=== PATIENT | female | born 1960 | race Two or more races ===

== ENCOUNTER 2025-05-27 08:41 | Inpatient (IN) | payer BC ==
[~2025-05-27] VITALS: Ht 170.2 cm; Wt 95.7 kg
[2025-05-27 08:49] VITALS: O2SAT 99
[2025-05-27] MEDS: SODIUM CHLORIDE 0.9% 1,000 ML IV ONE ×2 (09:15→11:00)
[2025-05-27] MEDS ORDERED: AMLODIPINE 10MG TABLET PO ONE (09:15)
[2025-05-27 09:29] LABS: BASOPHILS % 0.4 % (0.0-2.0); EOSINOPHILS % 1.7 % (0.0-5.0); HEMATOCRIT. 40.3 % (36.0-48.0); HEMOGLOBIN. 12.6 g/dL (12.0-16.0); LYMPHOCYTES % 36.1 % (20.0-50.0); MEAN PLATELET VOLUME 10.0 fl (7.4-10.4); MONOCYTES % 7.5 % (2.0-8.0); NEUTROPHILS % 54.3 % (40.0-76.0); PLATELET 196 x1000/uL (130-400); RED BLOOD CELL COUNT 5.10 mill/uL (4.2-5.4); RED CELL DISTRIBUTION WIDTH 15.0 % (11.6-14.6)
[2025-05-27] MEDS: LOSARTAN 50 MG TABLET PO ONE (09:35)
[2025-05-27 09:45] LABS: CREATININE 1.4 mg/dL (0.6-1.0)
[2025-05-27 09:46] LABS: UREA NITROGEN BLOOD 17 mg/dL (9-23)
[2025-05-27 09:47] LABS: ASPARTATE AMINOTRANSFERASE 12 IU/L (<34); BILIRUBIN DIRECT < 0.1 mg/dL (<=3.0)
[2025-05-27 09:48] LABS: BILIRUBIN TOTAL 0.4 mg/dL (0.1-1.0); PROTEIN TOTAL 7.8 g/dL (6.0-8.3)
[2025-05-27 09:50] LABS: BG BASE EXCESS -1.7 mmol/L (-2.0-3.0); BG CARBOXYHEMOGLOBIN 0.8 % (0.5-1.5); BG DEOXYHEMOGLOBIN 3.1 % (0.0-5.0); BG FRACTION INSPIRED OXYGEN 21; BG HCO3 ACT 21.8 mmol/L (21.0-28.0); BG METHEMOGLOBIN 0.3 % (0.5-1.5); BG OXYGEN SATURATION 96.9 % (94.0-98.0); BG OXYHEMOGLOBIN 95.8 % (94.0-98.0); BG PCO2 33.4 mmHg (32.0-45.0); BG PH 7.433 (7.350-7.450); BG PO2 90.6 mmHg (83.0-108.0); BG SAMPLE SITE RIGHT RADIAL; BG TOTAL HEMOGLOBIN 13.4 g/dL (12.0-16.0); BG VENT MODE ROOM AIR
[2025-05-27 09:59] LABS: TROPONIN I HIGH SENSITIVITY 35 ng/L (3.0-34)
[2025-05-27 10:12] LABS: CLARITY URINE CLEAR (CLEAR); COLOR URINE YELLOW (YELLOW); GLUCOSE URINE 3+ (NEGATIVE); KETONES URINE NEGATIVE (NEGATIVE); LEUKOCYTE ESTERASE URINE NEGATIVE (NEGATIVE); NITRITE URINE NEGATIVE (NEGATIVE); OCCULT BLOOD URINE NEGATIVE (NEGATIVE); PH URINE 7.0 (4.5-8.0); PROTEIN URINE 1+ (NEGATIVE); SPECIFIC GRAVITY URINE 1.006 (1.005-1.030); UROBILINOGEN URINE 0.2 E.U./dL (0.2-1.0)
[2025-05-27 10:53] LABS: SQUAMOUS EPITHELIAL CELL URINE RARE /lpf (RARE/1+)
[2025-05-27 10:54] LABS: BACTERIA URINE TRACE; RBC URINE NONE SEEN /hpf (0-2); WBC URINE 0-2 /hpf (0-2)
[2025-05-27] MEDS: INSULIN REGULAR (HUMULIN R) 1000UNITS/10ML VIAL SUBCUT SCH (11:22)
[2025-05-27] MEDS: AMLODIPINE 10MG TABLET PO SCH (11:23)
[2025-05-27] MEDS: ASPIRIN 325MG EC TABLET PO SCH (11:25)
[2025-05-27] MEDS: HYDRALAZINE 20MG/ML VIAL IV SCH (11:32)
[2025-05-27] MEDS ORDERED: IPRATROPIUM/ALBUTEROL 0.5-3(2.5)MG/3ML NEB HHN PRN (11:45)
[2025-05-27] MEDS ORDERED: HYDRALAZINE 20MG/ML VIAL IV PRN (11:45)
[2025-05-27] MEDS ORDERED: DOCUSATE SODIUM 100MG CAPSULE PO PRN (11:45)
[2025-05-27] MEDS ORDERED: DEXTROSE 50% WATER 50ML SYRINGE IV PRN (11:45)
[2025-05-27] MEDS ORDERED: GUAIFENESIN 200MG/10ML SUGAR FREE UDC PO PRN (11:45)
[2025-05-27] MEDS ORDERED: ONDANSETRON HCL 4MG/2ML INJ IV PRN (11:45)
[2025-05-27] MEDS ORDERED: LORAZEPAM 0.5MG TABLET PO PRN (11:45)
[2025-05-27] MEDS ORDERED: ACETAMINOPHEN 325MG TABLET PO PRN ×2 (11:45)
[2025-05-27 12:44] LABS: LDL CHOLESTEROL 123.0 mg/dL (5-100); TRIGLYCERIDE 123.0 mg/dL (0-150); TROPONIN I HIGH SENSITIVITY 33 ng/L (3.0-34)
[2025-05-27 12:48] LABS: T4 FREE 1.52 ng/dL (0.89-1.76)
[2025-05-27] MEDS: BLOOD SUGAR DIAGNOSTIC STRIP TEST SCH (13:00)
[2025-05-27] MEDS: INSULIN LISPRO 100 UNITS/ML SUBCUT SCH (13:20)
[2025-05-27 16:00] VITALS: BP 140/75; PULSE 72; RESP 16; TEMP 36.9; O2SAT 99
[2025-05-27 17:21] VITALS: BP 143/74; PULSE 62; RESP 16; TEMP 36.8628
[2025-05-27] MEDS: ENOXAPARIN 40MG/0.4ML SYR SUBCUT SCH (17:56)
[2025-05-27] MEDS ORDERED: SEMA2PEN (18:57)
[2025-05-27] MEDS ORDERED: AMLO5TAB88 PO (18:57)
[2025-05-27] MEDS ORDERED: FURO-151 PO (18:57)
[2025-05-27] MEDS ORDERED: METO-396 PO (18:57)
[2025-05-27 20:00] VITALS: BP 178/89; PULSE 76; RESP 18; TEMP 36.4
[2025-05-27] MEDS: HYDRALAZINE HCL 50MG TABLET PO SCH (21:12)
[2025-05-27] MEDS: CLONIDINE 0.1MG TABLET PO PRN (21:13)
[2025-05-27] MEDS: INSULIN GLARGINE 100 UNITS/ML SUBCUT SCH (21:26)
[2025-05-27] MEDS ORDERED: INSULIN GLARGINE 100 UNITS/ML SUBCUT SCH (22:00)
[2025-05-28] VITALS: BP 158/75; PULSE 78; RESP 18; TEMP 36.8
[2025-05-28 04:00] VITALS: BP 147/76; PULSE 76; RESP 18; TEMP 36.1
[2025-05-28 08:00] VITALS: BP 180/83; PULSE 63; RESP 20; TEMP 36.2; O2SAT 97
[2025-05-28] MEDS: ASPIRIN 81MG TABLET PO SCH (08:34)
[2025-05-28] MEDS: AMLODIPINE 10MG TABLET PO SCH (08:34)
[2025-05-28] MEDS: METOPROLOL SUCCINATE 50MG ER TABLET PO SCH (08:35)
[2025-05-28 12:00] VITALS: BP 164/84; PULSE 80; RESP 18; TEMP 36.2; O2SAT 98
[2025-05-28 12:22] LABS: BASOPHILS % 0.4 % (0.0-2.0); EOSINOPHILS % 2.4 % (0.0-5.0); HEMATOCRIT. 39.3 % (36.0-48.0); HEMOGLOBIN. 12.5 g/dL (12.0-16.0); LYMPHOCYTES % 38.6 % (20.0-50.0); MEAN PLATELET VOLUME 10.4 fl (7.4-10.4); MONOCYTES % 6.5 % (2.0-8.0); NEUTROPHILS % 52.1 % (40.0-76.0); PLATELET 198 x1000/uL (130-400); RED BLOOD CELL COUNT 4.98 mill/uL (4.2-5.4); RED CELL DISTRIBUTION WIDTH 14.5 % (11.6-14.6)
[2025-05-28 12:30] LABS: CREATININE 1.3 mg/dL (0.6-1.0); UREA NITROGEN BLOOD 14.0 mg/dL (9-23)
[2025-05-28] MEDS ORDERED: HYDRALAZINE HCL 50MG TABLET PO SCH (13:00)
[2025-05-28] MEDS: HYDRALAZINE HCL 50MG TABLET PO SCH (13:23)
[2025-05-28 16:00] VITALS: BP 159/89; PULSE 78; RESP 18; TEMP 36.3; O2SAT 98
[2025-05-28] MEDS: INSULIN LISPRO 100 UNITS/ML SUBCUT SCH ×2 (17:40→17:41)
[2025-05-28] MEDS ORDERED: CLON-493 PO (18:24)
[2025-05-28] MEDS ORDERED: ASPI-1497 PO (18:25)
[2025-05-28] MEDS ORDERED: METF-1150 MT (18:26)
[2025-05-28] MEDS ORDERED: HYDR50TA40 MT (18:27)
[2025-05-28] MEDS ORDERED: HYDR12.54 PO (18:28)
[2025-05-28] MEDS ORDERED: POTA-205 PO (18:28)
[2025-05-28] MEDS ORDERED: GLIP5TAB22 PO (18:29)
[2025-05-28 20:00] VITALS: BP 147/77; PULSE 57; RESP 19; TEMP 35.8; O2SAT 96
[2025-05-28] MEDS: ATORVASTATIN CALCIUM 40MG TABLET PO SCH (20:38)
[2025-05-28 21:28] LABS: CREATININE URINE RANDOM 76.7 mg/dL; UREA NITROGEN URINE RANDOM 336 mg/dL
[2025-05-28] MEDS: INSULIN GLARGINE 100 UNITS/ML SUBCUT SCH (21:57)
[2025-05-28 22:25] LABS: SODIUM URINE RANDOM < 10 mEq/L
[2025-05-28 22:38] LABS: OSMOLALITY URINE 235 mOsm/kg (500-850)
[2025-05-29] VITALS: BP 143/73; PULSE 62; RESP 19; TEMP 36.4; O2SAT 98
[2025-05-29 04:00] VITALS: BP 143/75; PULSE 54; RESP 19; TEMP 36.4
[2025-05-29 08:00] VITALS: BP 143/77; PULSE 53; RESP 17; TEMP 36.4; O2SAT 97
[2025-05-29 12:00] VITALS: BP 161/85; PULSE 55; RESP 16; TEMP 36.5; O2SAT 98
[2025-05-29] MEDS: INSULIN LISPRO 100 UNITS/ML SUBCUT SCH (13:05)
[2025-05-29] MEDS ORDERED: ASPI-1497 PO (13:17)
[2025-05-29] MEDS ORDERED: METO-396 PO (13:17)
[2025-05-29] MEDS ORDERED: METF-1150 MT (13:17)
[2025-05-29] MEDS ORDERED: AMLO10TA80 PO (13:17)
[2025-05-29] MEDS ORDERED: INSU100I28 SQ (13:17)
[2025-05-29] MEDS ORDERED: LIP40 PO (13:17)
[2025-05-29] MEDS ORDERED: HYDR50TA39 PO (13:17)
[2025-05-29] MEDS ORDERED: HYDR-2988 MT (15:03)
[2025-05-29 16:57] LABS: CREATININE 1.4 mg/dL (0.6-1.0); UREA NITROGEN BLOOD 16.0 mg/dL (9-23)
[2025-05-29] MEDS ORDERED: HYDR12.54 PO (17:24)
[2025-05-29 17:57] VITALS: BP 154/82; PULSE 55; RESP 17; TEMP 98
[2025-05-29] MEDS ORDERED: INSULIN GLARGINE 100 UNITS/ML SUBCUT SCH (22:00)
[2025-05-30] MEDS ORDERED: METOPROLOL SUCCINATE 25MG ER TABLET PO SCH (09:00)
[2025-05-31] MEDS ORDERED: INSU100I28 SQ (17:18)
[2025-05-31] MEDS ORDERED: ATOR40TA70 PO (17:18)
[2025-05-31] MEDS ORDERED: ASPI-1497 PO (17:18)
[2025-05-31] MEDS ORDERED: METO-396 PO (17:18)
[2025-05-31] MEDS ORDERED: HYDR12.54 PO (17:18)
[2025-05-31] MEDS ORDERED: METF-1149 PO (17:18)
[2025-05-31] MEDS ORDERED: AMLO10TA80 PO (17:18)
[2025-05-31] MEDS ORDERED: HYDR50TA40 PO (17:18)
== END 2025-05-29 18:30 | disposition home or self-care (01) | DRG 682 ==
LOC: ER 08:41 → 7WST 10:25 → EDBEDREQ 10:28 → EDBEDREQTM 10:28
PROVIDERS: ADMIT Internal Medicine; ATTEND Internal Medicine
DX: I12.9 Hypertensive chronic kidney disease with stage 1 through stage 4 chronic kidney disease, or unspecified chronic kidney disease (principal); I21.A1 Myocardial infarction type 2; I16.1 Hypertensive emergency; E87.1 Hypo-osmolality and hyponatremia; N17.9 Acute kidney failure, unspecified; E11.65 Type 2 diabetes mellitus with hyperglycemia; N18.9 Chronic kidney disease, unspecified; E11.319 Type 2 diabetes mellitus with unspecified diabetic retinopathy without macular edema; E11.22 Type 2 diabetes mellitus with diabetic chronic kidney disease; E78.5 Hyperlipidemia, unspecified; Z79.4 Long term (current) use of insulin; Z79.899 Other long term (current) drug therapy; Z91.148 Patient's other noncompliance with medication regimen for other reason
CPT/HCPCS: 36415; 36600; 71045; 76770; 80048; 80061; 80076; 80320; 81003; 82010; 82375; 82570; 82805; 82962; 83036; 83735; 83930; 83935; 84300; 84439; 84443; 84484; 84540; 85025; 93005; 93306; 93970; 96360; 97165; 99291; A4606; J0360; J1650; J1815; J7030; G0480